=== PATIENT | male | born 2000 | race African-American/Black ===

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

== ENCOUNTER 2020-02-11 20:28 | Observation (INO) ==
[2020-02-11] MEDS: 0.9 % Sodium Chloride 1,000 ML IVC SCH ×2 (21:18→21:19)
[2020-02-11] MEDS ORDERED: *HR* Dextrose 50 % in Water (Syg) 50 ML SYRINGE IVP PRN (21:20)
[2020-02-11] MEDS ORDERED: Insulin Regular, Human 100 UNIT/ML IV ONE (21:20)
[2020-02-11 21:22] LABS: Basophils % 0.5 %; Eosinophils # 0.1 K/mcL (0.0-0.6); Eosinophils % 1.3 %; Hemoglobin 14.3 g/dL (12.9-16.9); Immature Granulocytes % 0.3 % (0-4); Lymphocytes # 3.1 K/mcL (0.6-4.6); Lymphocytes % 39.1 %; Mean Corpuscular HGB Conc 31.8 g/dL (31.6-35.5); Mean Corpuscular Volume 91.3 fL (83.0-100.0); Mean Platelet Volume 10.7 fL (9.4-12.4); Monocytes # 0.7 K/mcL (0.0-1.3); Neutrophils # 3.9 K/mcL (1.6-8.9); Platelet Count 302 K/mcL (140-400); Red Blood Count 4.93 M/mcL (4.19-5.50); Red Cell Distribution Width 12.6 % (11.5-14.5); Segmented Neutrophils % 49.8 %; White Blood Count 7.9 K/mcL (4.3-11.1)
[2020-02-11 21:25] LABS: Bilirubin,Urine Negative (Negative); Blood,Urine Negative (Negative); Clarity,Urine Clear (Clear); Color,Urine Yellow (Yellow); Glucose,Urine (UA) >=1000 mg/dL (Normal); Ketones,Urine Trace mg/dL (Negative); Leukocyte Esterase,Urine Negative (Negative); Nitrite,Urine Negative (Negative); Protein,Urine Negative (Neg-Trace); Specific Gravity,Urine 1.029 (1.010-1.025); Urobilinogen,Urine Normal (Normal)
[2020-02-11 21:28] LABS: VBG HCO3 31 mEq/L (21-27); VBG PCO2 59 mmHg (41-51); VBG PH 7.32 pH Units (7.32-7.42); VBG PO2 37 mmHg (25-50)
[2020-02-11] MEDS ORDERED: Insulin Human Regular 100 UNIT in 0.9 % Sodium Chloride 100 ML IVC SCH (21:30)
[2020-02-11 22:05] LABS: Amorphous Sediment,Urine Few per hpf (Few)
[2020-02-11 22:16] LABS: INR 0.9; Prothrombin Time 10.4 Seconds (9.4-12.1)
[2020-02-11 22:19] LABS: Activated Partial Thrombo Time 29.5 Seconds (26.0-36.0)
[2020-02-11 22:29] LABS: Alanine Aminotransferase 30 Units/L (7-52); Albumin 3.8 g/dL (3.5-5.7); Alkaline Phosphatase 103 Units/L (34-104); Aspartate Amino Transferase 35 Units/L (13-39); BUN/Creatinine Ratio 15 (6-26); Bilirubin,Total 0.6 mg/dL (0.3-1.0); Blood Urea Nitrogen 16 mg/dL (6-20); Calcium 8.1 mg/dL (8.6-10.3); Carbon Dioxide 25 mEq/L (23-29); Chloride 96 mEq/L (98-107); Globulin 1.9 g/dL (2.4-3.5); Glucose 740 mg/dL (70-105); Magnesium 1.8 mg/dL (1.6-2.6); Osmolality,Calculated 305 (280-300); Potassium 3.9 mEq/L (3.5-5.1); Sodium 129 mEq/L (136-145); Total Protein 5.7 g/dL (6.4-8.9); eGFR For African Americans > 60; eGFR For Non-African Americans > 60
[2020-02-12] MEDS ORDERED: 0.9 % Sodium Chloride 1,000 ML ONE (01:43)
[2020-02-12] MEDS ORDERED: Dextrose Gel 15 GM/37.5 ML TUBE PO PRN ×2 (02:53)
[2020-02-12] MEDS ORDERED: Insulin DETEMIR 100 UNIT/ML X5UNITS SQ SCH (02:53)
[2020-02-12] MEDS ORDERED: D5% in Water 1,000 ML IVC PRN (02:53)
[2020-02-12] MEDS ORDERED: *HR* Dextrose 50 % in Water (Syg) 50 ML SYRINGE IVP PRN (02:53)
[2020-02-12 05:39] LABS: Basophils % 0.5 %; Eosinophils # 0.2 K/mcL (0.0-0.6); Eosinophils % 1.9 %; Hematocrit 34.6 % (37.5-50.1); Immature Granulocytes % 0.1 % (0-4); Lymphocytes # 3.9 K/mcL (0.6-4.6); Lymphocytes % 44.4 %; Mean Corpuscular Hemoglobin 29.4 pg (28.0-33.3); Monocytes # 0.8 K/mcL (0.0-1.3); Monocytes % 8.5 %; Neutrophils # 3.9 K/mcL (1.6-8.9); Platelet Count 270 K/mcL (140-400); Red Blood Count 4.12 M/mcL (4.19-5.50); Red Cell Distribution Width 12.3 % (11.5-14.5); Segmented Neutrophils % 44.6 %; White Blood Count 8.8 K/mcL (4.3-11.1)
[2020-02-12 05:42] LABS: Hemoglobin 12.1 g/dL (12.9-16.9)
[2020-02-12 05:54] LABS: BUN/Creatinine Ratio 15 (6-26); Blood Urea Nitrogen 13 mg/dL (6-20); Calcium 8.9 mg/dL (8.6-10.3); Carbon Dioxide 26 mEq/L (23-29); Chloride 103 mEq/L (98-107); Glucose 202 mg/dL (70-105); Osmolality,Calculated 290 (280-300); Potassium 3.3 mEq/L (3.5-5.1); Sodium 137 mEq/L (136-145); eGFR For African Americans > 60; eGFR For Non-African Americans > 60
[2020-02-12] MEDS: Insulin LISPRO 300 UNITS/3 ML VIAL SQ SCH ×2 (07:41→12:20)
[2020-02-12] MEDS ORDERED: lisinopriL 5 MG TABLET PO SCH (09:00)
[2020-02-12 12:06] VITALS: BP 123/74
[2020-02-12] MEDS ORDERED: Insulin LISPRO 300 UNITS/3 ML VIAL SQ SCH (21:00)
== END 2020-02-12 14:37 | disposition home or self-care (01) ==
LOC: EMEROOARM 20:28 → 3NENU 20:28 → SUATTDRO 23:45 → 3NENU 02-12 00:22 → 3BNU 02-12 11:53
PROVIDERS: ADMIT Internal Medicine; ATTEND Internal Medicine

== ENCOUNTER 2022-02-07 12:17 | Inpatient (IN) ==
[~2022-02-07 12:17] MED LIST: Ringers Solution, Lactated 1,000 ML IVC ONE
[2022-02-07] MEDS ORDERED: CeFAZolin Syr 2,000MG/20 ML 2,000 MG/20 ML SYRINGE IVPB ONE (12:41)
[2022-02-07] MEDS ORDERED: Insulin Human Regular 3 UNIT in 0.9 % Sodium Chloride 10 ML IV ONE (12:49)
[2022-02-07] MEDS ORDERED: Ondansetron 4 MG/2 ML VIAL IVP PRN (13:00)
[2022-02-07] MEDS ORDERED: Naloxone 0.4 MG/ML INJ IVP PRN ×2 (13:00→17:34)
[2022-02-07] MEDS ORDERED: *HR* FentaNYL (PF) 100 MCG/2 ML VIAL IVP PRN (13:00)
[2022-02-07] MEDS ORDERED: Nitroglycerin 0.4 MG TAB.SUBL SL PRN (13:00)
[2022-02-07] MEDS ORDERED: Albuterol 2.5 MG/3 ML NEBULIZER IH PRN (13:00)
[2022-02-07] MEDS ORDERED: *HR* FentaNYL (PF) 100 MCG/2 ML VIAL ONE (13:12)
[2022-02-07] MEDS ORDERED: *HR* Midazolam HCl 2 MG/2 ML VIAL ONE (13:12)
[2022-02-07] MEDS ORDERED: Lidocaine -MPF 2% 2 ML VIAL ONE (13:12)
[2022-02-07] MEDS ORDERED: *HR* Propofol 200 MG/20 ML VIAL IVP ONE ×2 (13:12→16:07)
[2022-02-07] MEDS ORDERED: Acetaminophen IV 1,000 MG/100 ML BAG IVPB ONE (14:00)
[2022-02-07] MEDS ORDERED: Famotidine 20 MG/2 ML VIAL IVP ONE (14:00)
[2022-02-07] MEDS ORDERED: Ondansetron 4 MG/2 ML VIAL ONE (16:00)
[2022-02-07] MEDS ORDERED: D5% in Water 1,000 ML IVC PRN (17:34)
[2022-02-07] MEDS ORDERED: Dextrose 4 GM Chewable Tablets PO PRN ×2 (17:34)
[2022-02-07] MEDS ORDERED: *HR* Dextrose 50 % in Water (Syg) 50 ML SYRINGE IVP PRN (17:34)
[2022-02-07] MEDS: Ibuprofen 600 MG TABLET PO PRN (20:57)
[2022-02-07] MEDS: Insulin DETEMIR 100 UNIT/ML X5UNITS SUBQ SCH (21:00)
[2022-02-07] MEDS: Insulin LISPRO 300 UNITS/3 ML VIAL SUBQ SCH (21:00)
[2022-02-07] MEDS ORDERED: Insulin DETEMIR 100 UNIT/ML X5UNITS SUBQ SCH (21:00)
[2022-02-07] MEDS: Piperacillin/Tazobactam 3.375 GM in 0.9 % Sodium Chloride Mini Bag 100 ML IVPB SCH (21:39)
[2022-02-07 22:25] LABS: BUN/Creatinine Ratio 14 (6-26); Blood Urea Nitrogen 16 mg/dL (6-20)
[2022-02-07 22:26] LABS: eGFR For African Americans > 60 (> 60); eGFR For Non-African Americans > 60 (> 60)
[2022-02-08 01:04] LABS: Basophils % 0.3 %; Eosinophils # 0.1 K/mcL (0.0-0.6); Eosinophils % 1.6 %; Hematocrit 35.4 % (37.5-50.1); Hemoglobin 12.3 g/dL (12.9-16.9); Immature Granulocytes % 0.2 % (0-4); Lymphocytes # 3.1 K/mcL (0.6-4.6); Lymphocytes % 36.2 %; Mean Corpuscular HGB Conc 34.7 g/dL (31.6-35.5); Mean Corpuscular Hemoglobin 29.6 pg (28.0-33.3); Mean Corpuscular Volume 85.1 fL (83.0-100.0); Mean Platelet Volume 10.2 fL (9.4-12.4); Monocytes # 0.7 K/mcL (0.0-1.3); Monocytes % 7.7 %; Neutrophils # 4.7 K/mcL (1.6-8.9); Platelet Count 231 K/mcL (140-400); Red Blood Count 4.16 M/mcL (4.19-5.50); Red Cell Distribution Width 11.9 % (11.5-14.5); White Blood Count 8.7 K/mcL (4.3-11.1)
[2022-02-08 01:19] LABS: Blood Urea Nitrogen 16 mg/dL (6-20); Calcium 8.8 mg/dL (8.6-10.3); Carbon Dioxide 26 mEq/L (23-29); Chloride 104 mEq/L (98-107); Glucose 339 mg/dL (70-105); Osmolality,Calculated 299 (280-300); Potassium 3.6 mEq/L (3.5-5.1); Sodium 137 mEq/L (136-145)
[2022-02-08 01:55] LABS: BUN/Creatinine Ratio 13 (6-26); eGFR For African Americans > 60 (> 60); eGFR For Non-African Americans > 60 (> 60)
[2022-02-08] MEDS: Piperacillin/Tazobactam 3.375 GM in 0.9 % Sodium Chloride Mini Bag 100 ML IVPB SCH ×2 (04:49→13:55)
[2022-02-08] MEDS: Insulin LISPRO 300 UNITS/3 ML VIAL SUBQ SCH ×4 (09:01→21:34)
[2022-02-08 12:33] LABS: C-Reactive Protein 6 mg/L (Less than 10)
[2022-02-08] MEDS: Ibuprofen 600 MG TABLET PO PRN ×2 (13:55→21:39)
[2022-02-08] MEDS: Cefepime HCl 2,000 MG in 0.9 % Sodium Chloride Mini Bag 100 ML IVPB SCH (18:06)
[2022-02-08] MEDS: Insulin DETEMIR 100 UNIT/ML X5UNITS SUBQ SCH (21:34)
[2022-02-09 04:59] LABS: Basophils # 0.1 K/mcL (0.0-0.2); Basophils % 0.8 %; Eosinophils # 0.2 K/mcL (0.0-0.6); Eosinophils % 2.4 %; Hematocrit 35.5 % (37.5-50.1); Hemoglobin 12.6 g/dL (12.9-16.9); Immature Granulocytes % 0.2 % (0-4); Lymphocytes # 2.6 K/mcL (0.6-4.6); Lymphocytes % 38.9 %; Mean Corpuscular HGB Conc 35.5 g/dL (31.6-35.5); Mean Corpuscular Hemoglobin 29.9 pg (28.0-33.3); Mean Corpuscular Volume 84.3 fL (83.0-100.0); Mean Platelet Volume 10.1 fL (9.4-12.4); Monocytes # 0.7 K/mcL (0.0-1.3); Monocytes % 10.2 %; Neutrophils # 3.1 K/mcL (1.6-8.9); Platelet Count 235 K/mcL (140-400); Red Blood Count 4.21 M/mcL (4.19-5.50); Segmented Neutrophils % 47.5 %; White Blood Count 6.6 K/mcL (4.3-11.1)
[2022-02-09 05:10] LABS: BUN/Creatinine Ratio 13 (6-26); Blood Urea Nitrogen 12 mg/dL (6-20); Calcium 9.1 mg/dL (8.6-10.3); Carbon Dioxide 26 mEq/L (23-29); Chloride 109 mEq/L (98-107); Glucose 55 mg/dL (70-105); Osmolality,Calculated 291 (280-300); Potassium 3.4 mEq/L (3.5-5.1); Sodium 142 mEq/L (136-145); eGFR For African Americans > 60 (> 60); eGFR For Non-African Americans > 60 (> 60)
[2022-02-09] MEDS: Cefepime HCl 2,000 MG in 0.9 % Sodium Chloride Mini Bag 100 ML IVPB SCH ×2 (05:32→18:21)
[2022-02-09] MEDS ORDERED: MethylPREDNISolone 40 MG/ML VIAL IVP ONE (07:06)
[2022-02-09] MEDS ORDERED: Famotidine 20 MG/2 ML VIAL IVP ONE (07:06)
[2022-02-09] MEDS: Insulin LISPRO 300 UNITS/3 ML VIAL SUBQ SCH ×6 (08:26→22:04)
[2022-02-09] MEDS: Insulin DETEMIR 100 UNIT/ML X5UNITS SUBQ SCH ×2 (08:27→22:03)
[2022-02-09] MEDS ORDERED: Insulin DETEMIR 100 UNIT/ML X5UNITS SUBQ SCH (09:00)
[2022-02-09] MEDS: Vancomycin 1,250 MG/262.5 ML IV.SOLN IVPB SCH ×2 (12:15→22:07)
[2022-02-09] MEDS: Ibuprofen 600 MG TABLET PO PRN (18:20)
[2022-02-10] MEDS: Cefepime HCl 2,000 MG in 0.9 % Sodium Chloride Mini Bag 100 ML IVPB SCH (05:19)
[2022-02-10 05:49] LABS: Basophils # 0.1 K/mcL (0.0-0.2); Basophils % 0.5 %; Eosinophils # 0.1 K/mcL (0.0-0.6); Eosinophils % 1.1 %; Hematocrit 35.1 % (37.5-50.1); Hemoglobin 12.1 g/dL (12.9-16.9); Immature Granulocytes % 0.4 % (0-4); Lymphocytes % 28.6 %; Mean Corpuscular HGB Conc 34.5 g/dL (31.6-35.5); Mean Corpuscular Hemoglobin 29.4 pg (28.0-33.3); Mean Corpuscular Volume 85.2 fL (83.0-100.0); Mean Platelet Volume 9.8 fL (9.4-12.4); Monocytes # 0.9 K/mcL (0.0-1.3); Monocytes % 8.3 %; Neutrophils # 6.4 K/mcL (1.6-8.9); Platelet Count 235 K/mcL (140-400); Red Blood Count 4.12 M/mcL (4.19-5.50); Red Cell Distribution Width 11.9 % (11.5-14.5); Segmented Neutrophils % 61.1 %
[2022-02-10 06:07] LABS: White Blood Count 10.4 K/mcL (4.3-11.1)
[2022-02-10 06:12] LABS: BUN/Creatinine Ratio 18 (6-26); Blood Urea Nitrogen 17 mg/dL (6-20); Calcium 9.3 mg/dL (8.6-10.3); Carbon Dioxide 27 mEq/L (23-29); Chloride 108 mEq/L (98-107); Glucose 102 mg/dL (70-105); Osmolality,Calculated 294 (280-300); Potassium 3.5 mEq/L (3.5-5.1); Sodium 141 mEq/L (136-145); eGFR For African Americans > 60 (> 60); eGFR For Non-African Americans > 60 (> 60)
[2022-02-10] MEDS: Insulin LISPRO 300 UNITS/3 ML VIAL SUBQ SCH ×7 (08:00→22:37)
[2022-02-10] MEDS: Insulin DETEMIR 100 UNIT/ML X5UNITS SUBQ SCH ×2 (08:39→22:36)
[2022-02-10] MEDS: Vancomycin 1,250 MG/262.5 ML IV.SOLN IVPB SCH (11:15)
[2022-02-10] MEDS: Lactobacillus 1 EACH CAP.SPRINK PO SCH (20:01)
[2022-02-10] MEDS: Ibuprofen 600 MG TABLET PO PRN (20:03)
[2022-02-11 04:46] LABS: Basophils % 0.5 %; Eosinophils # 0.2 K/mcL (0.0-0.6); Eosinophils % 2.1 %; Hematocrit 33.3 % (37.5-50.1); Hemoglobin 11.5 g/dL (12.9-16.9); Immature Granulocytes % 0.3 % (0-4); Lymphocytes # 2.5 K/mcL (0.6-4.6); Lymphocytes % 32.2 %; Mean Corpuscular HGB Conc 34.5 g/dL (31.6-35.5); Mean Corpuscular Hemoglobin 29.2 pg (28.0-33.3); Mean Corpuscular Volume 84.5 fL (83.0-100.0); Mean Platelet Volume 10.2 fL (9.4-12.4); Monocytes # 0.8 K/mcL (0.0-1.3); Monocytes % 9.7 %; Neutrophils # 4.3 K/mcL (1.6-8.9); Platelet Count 233 K/mcL (140-400); Red Blood Count 3.94 M/mcL (4.19-5.50); Segmented Neutrophils % 55.2 %; White Blood Count 7.8 K/mcL (4.3-11.1)
[2022-02-11 05:05] LABS: BUN/Creatinine Ratio 18 (6-26); Blood Urea Nitrogen 17 mg/dL (6-20); Calcium 9.1 mg/dL (8.6-10.3); Carbon Dioxide 27 mEq/L (23-29); Chloride 105 mEq/L (98-107); Glucose 290 mg/dL (70-105); Osmolality,Calculated 298 (280-300); Potassium 3.7 mEq/L (3.5-5.1); Sodium 138 mEq/L (136-145); eGFR For African Americans > 60 (> 60); eGFR For Non-African Americans > 60 (> 60)
[2022-02-11] MEDS: Lactobacillus 1 EACH CAP.SPRINK PO SCH ×2 (07:41→19:59)
[2022-02-11] MEDS: Insulin LISPRO 300 UNITS/3 ML VIAL SUBQ SCH ×7 (07:42→21:20)
[2022-02-11] MEDS ORDERED: Lidocaine -MPF 1% 5 ML AMPUL INFILT ONE (15:10)
[2022-02-11] MEDS: Insulin DETEMIR 100 UNIT/ML X5UNITS SUBQ SCH ×2 (15:17→21:20)
[2022-02-11] MEDS: Ibuprofen 600 MG TABLET PO PRN (23:47)
[2022-02-12] MEDS: Insulin LISPRO 300 UNITS/3 ML VIAL SUBQ SCH ×7 (08:33→20:40)
[2022-02-12] MEDS: Lactobacillus 1 EACH CAP.SPRINK PO SCH ×2 (08:34→20:40)
[2022-02-12] MEDS: Insulin DETEMIR 100 UNIT/ML X5UNITS SUBQ SCH ×2 (08:35→20:41)
[2022-02-12] MEDS: Ibuprofen 600 MG TABLET PO PRN (23:02)
[2022-02-13] MEDS: Insulin LISPRO 300 UNITS/3 ML VIAL SUBQ SCH ×2 (07:49→07:50)
[2022-02-13] MEDS: Lactobacillus 1 EACH CAP.SPRINK PO SCH (07:51)
[2022-02-13 11:07] VITALS: BP 141/92; PULSE 87; TEMP 97.8; O2SAT 100
[2022-02-13 11:08] LABS: Basophils # 0.1 K/mcL (0.0-0.2); Basophils % 0.7 %; Eosinophils # 0.2 K/mcL (0.0-0.6); Eosinophils % 2.4 %; Hematocrit 35.1 % (37.5-50.1); Hemoglobin 12.3 g/dL (12.9-16.9); Immature Granulocytes % 0.3 % (0-4); Lymphocytes # 1.7 K/mcL (0.6-4.6); Lymphocytes % 24.7 %; Mean Corpuscular Hemoglobin 29.6 pg (28.0-33.3); Mean Corpuscular Volume 84.6 fL (83.0-100.0); Monocytes # 0.7 K/mcL (0.0-1.3); Monocytes % 10.5 %; Neutrophils # 4.3 K/mcL (1.6-8.9); Platelet Count 263 K/mcL (140-400); Red Blood Count 4.15 M/mcL (4.19-5.50); Red Cell Distribution Width 11.9 % (11.5-14.5); Segmented Neutrophils % 61.4 %
[2022-02-13 11:31] LABS: BUN/Creatinine Ratio 16 (6-26); Blood Urea Nitrogen 14 mg/dL (6-20); Calcium 9.3 mg/dL (8.6-10.3); Carbon Dioxide 29 mEq/L (23-29); Chloride 106 mEq/L (98-107); Glucose 168 mg/dL (70-105); Magnesium 1.5 mg/dL (1.6-2.6); Osmolality,Calculated 296 (280-300); Potassium 3.8 mEq/L (3.5-5.1); Sodium 141 mEq/L (136-145); eGFR For African Americans > 60 (> 60); eGFR For Non-African Americans > 60 (> 60)
== END 2022-02-13 12:22 | disposition home health service (06) | DRG 506 ==
LOC: SDCAOSI 12:17 → 4WAOSI 12:17 → SUATTDRO 17:34
PROVIDERS: ADMIT Internal Medicine; ATTEND Pharmacist

== ENCOUNTER 2022-02-20 20:19 | Inpatient (IN) ==
[2022-02-20] MEDS ORDERED: Cefepime HCl 2,000 MG in 0.9 % Sodium Chloride 10 ML IVP ONE (20:45)
[2022-02-20] MEDS: 0.9 % Sodium Chloride 1,000 ML IVC SCH ×2 (20:58→22:47)
[2022-02-20 21:01] LABS: Basophils % 0.3 %; Eosinophils # 0.2 K/mcL (0.0-0.6); Eosinophils % 2.1 %; Hematocrit 38.6 % (37.5-50.1); Hemoglobin 13.7 g/dL (12.9-16.9); Immature Granulocytes % 0.3 % (0-4); Lymphocytes # 0.7 K/mcL (0.6-4.6); Lymphocytes % 9.1 %; Mean Corpuscular HGB Conc 35.5 g/dL (31.6-35.5); Mean Corpuscular Hemoglobin 29.8 pg (28.0-33.3); Mean Corpuscular Volume 83.9 fL (83.0-100.0); Monocytes # 0.8 K/mcL (0.0-1.3); Monocytes % 10.2 %; Neutrophils # 5.9 K/mcL (1.6-8.9); Platelet Count 225 K/mcL (140-400); Red Cell Distribution Width 11.9 % (11.5-14.5); White Blood Count 7.6 K/mcL (4.3-11.1)
[2022-02-20 21:07] LABS: VBG HCO3 27 mEq/L (21-27); VBG PCO2 46 mmHg (41-51); VBG PH 7.37 pH Units (7.32-7.42); VBG PO2 47 mmHg (25-50)
[2022-02-20 21:12] LABS: Prothrombin Time 11.6 Seconds (9.4-12.1)
[2022-02-20 21:14] LABS: Activated Partial Thrombo Time 32.6 Seconds (26.0-36.0)
[2022-02-20 21:24] LABS: Alanine Aminotransferase 25 Units/L (7-52); Albumin 4.3 g/dL (3.5-5.7); Albumin/Globulin Ratio 1.5 (1.1-2.2); Alkaline Phosphatase 70 Units/L (34-104); Aspartate Amino Transferase 23 Units/L (13-39); BUN/Creatinine Ratio 16 (6-26); Bilirubin,Indirect 0.5 mg/dL (0.0-1.0); Bilirubin,Total 0.5 mg/dL (0.3-1.0); Blood Urea Nitrogen 20 mg/dL (6-20); Calcium 9.3 mg/dL (8.6-10.3); Carbon Dioxide 27 mEq/L (23-29); Chloride 102 mEq/L (98-107); Globulin 2.8 g/dL (2.4-3.5); Glucose 200 mg/dL (70-105); Magnesium 1.6 mg/dL (1.6-2.6); Osmolality,Calculated 294 (280-300); Phosphorous 3.6 mg/dL (2.7-4.5); Potassium 3.5 mEq/L (3.5-5.1); Sodium 138 mEq/L (136-145); Total Protein 7.1 g/dL (6.4-8.9); eGFR For African Americans > 60 (> 60); eGFR For Non-African Americans > 60 (> 60)
[2022-02-20 21:25] LABS: Troponin I < 0.03 ng/mL (< 0.04)
[2022-02-20 22:25] LABS: Influenza A PCR Negative (Negative); Influenza B PCR Negative (Negative); Resp. Syncytial Virus PCR Negative (Negative)
[2022-02-20 22:30] LABS: SARS-CoV-2 by PCR (In House) Negative (Negative)
[2022-02-20] MEDS ORDERED: Ibuprofen 600 MG TABLET PO ONE (22:35)
[2022-02-20 22:53] LABS: C-Reactive Protein 18 mg/L (Less than 10)
[2022-02-20 23:08] LABS: Appearance,CSF Clear (Clear); Red Blood Cell,CSF < 2000 RBC/mcL
[2022-02-20 23:16] LABS: Bacteria,Urine Few per hpf (None-Few); Bilirubin,Urine Negative (Negative); Blood,Urine Small (Negative); Clarity,Urine Clear (Clear); Color,Urine Light-Yellow (Yellow); Glucose,Urine (UA) 70 mg/dL (Normal); Ketones,Urine 10 mg/dL (Negative); Leukocyte Esterase,Urine Negative (Negative); Mucus,Urine Few per lpf (None-Few); Nitrite,Urine Negative (Negative); Protein,Urine 200 mg/dL (Neg-Trace); Specific Gravity,Urine 1.022 (1.010-1.025); Sperm,Urine Present per hpf (None Seen); Squamous Epithelial Cell,Urine Few per hpf (None-Few); Urobilinogen,Urine Normal (Normal); WBC,Urine 0-3 per hpf (0-3)
[2022-02-20 23:29] LABS: Glucose,CSF 101 mg/dL (40-70); Total Protein,CSF 99 mg/dL (15-45)
[2022-02-21] MEDS ORDERED: Ondansetron 4 MG/2 ML VIAL IVP PRN (01:04)
[2022-02-21] MEDS ORDERED: Naloxone 0.4 MG/ML INJ IVP PRN (01:04)
[2022-02-21] MEDS ORDERED: Dextrose 4 GM Chewable Tablets PO PRN ×2 (01:05)
[2022-02-21] MEDS ORDERED: D5% in Water 1,000 ML IVC PRN (01:05)
[2022-02-21] MEDS ORDERED: *HR* Dextrose 50 % in Water (Syg) 50 ML SYRINGE IVP PRN (01:05)
[2022-02-21 02:53] LABS: Basophils % 0.2 %; Eosinophils # 0.1 K/mcL (0.0-0.6); Eosinophils % 2.2 %; Hematocrit 33.2 % (37.5-50.1); Immature Granulocytes % 0.3 % (0-4); Lymphocytes # 0.6 K/mcL (0.6-4.6); Lymphocytes % 9.6 %; Mean Corpuscular HGB Conc 34.9 g/dL (31.6-35.5); Mean Corpuscular Hemoglobin 29.7 pg (28.0-33.3); Mean Corpuscular Volume 84.9 fL (83.0-100.0); Mean Platelet Volume 10.5 fL (9.4-12.4); Monocytes # 0.6 K/mcL (0.0-1.3); Monocytes % 10.4 %; Neutrophils # 4.5 K/mcL (1.6-8.9); Platelet Count 187 K/mcL (140-400); Red Blood Count 3.91 M/mcL (4.19-5.50); Segmented Neutrophils % 77.3 %; White Blood Count 5.8 K/mcL (4.3-11.1)
[2022-02-21 02:54] LABS: Hemoglobin 11.6 g/dL (12.9-16.9)
[2022-02-21 03:02] LABS: INR 1.1; Prothrombin Time 12.2 Seconds (9.4-12.1)
[2022-02-21 03:05] LABS: Activated Partial Thrombo Time 30.5 Seconds (26.0-36.0)
[2022-02-21] MEDS: Ringers Solution, Lactated 1,000 ML IVC SCH ×2 (03:07→19:59)
[2022-02-21] MEDS: Insulin DETEMIR 100 UNIT/ML X5UNITS SUBQ SCH ×2 (03:13→22:13)
[2022-02-21 03:16] LABS: Alanine Aminotransferase 22 Units/L (7-52); Albumin 3.6 g/dL (3.5-5.7); Albumin/Globulin Ratio 1.9 (1.1-2.2); Alkaline Phosphatase 55 Units/L (34-104); Aspartate Amino Transferase 23 Units/L (13-39); BUN/Creatinine Ratio 16 (6-26); Bilirubin,Total 0.5 mg/dL (0.3-1.0); Blood Urea Nitrogen 18 mg/dL (6-20); Calcium 8.2 mg/dL (8.6-10.3); Carbon Dioxide 21 mEq/L (23-29); Chloride 105 mEq/L (98-107); Globulin 1.9 g/dL (2.4-3.5); Glucose 243 mg/dL (70-105); Magnesium 1.4 mg/dL (1.6-2.6); Osmolality,Calculated 290 (280-300); Potassium 3.4 mEq/L (3.5-5.1); Sodium 135 mEq/L (136-145); Total Protein 5.5 g/dL (6.4-8.9); eGFR For African Americans > 60 (> 60); eGFR For Non-African Americans > 60 (> 60)
[2022-02-21] MEDS ORDERED: Vancomycin 1,500 MG/265 ML IV.SOLN IVPB SCH (05:00)
[2022-02-21] MEDS ORDERED: Insulin LISPRO 300 UNITS/3 ML VIAL SUBQ SCH ×2 (06:00→07:30)
[2022-02-21] MEDS: Lactobacillus 1 EACH CAP.SPRINK PO SCH ×2 (08:23→22:13)
[2022-02-21] MEDS: Nicotine 21 MG PATCH.TD24 TD SCH (08:40)
[2022-02-21 09:19] LABS: Estimated Average Glucose 280 mg/dl; Hemoglobin A1C 11.4 %
[2022-02-21 10:38] LABS: Adenovirus Not Detected (Not Detect)
[2022-02-21 10:39] LABS: Bordetella Pertussis Not Detected (Not Detect); Chlamydophila pneumoniae Not Detected (Not Detect); Coronavirus 229E Not Detected (Not Detect); Coronavirus HKU1 Not Detected (Not Detect); Coronavirus NL63 Not Detected (Not Detect); Coronavirus OC43 Not Detected (Not Detect); Human Metapneumovirus Not Detected (Not Detect); Human Rhinovirus/Enterovirus Not Detected (Not Detect); Influenza A Subtype 2009 H1 Not Detected (Not Detect); Influenza B Not Detected (Not Detect); Mycoplasma pneumoniae Not Detected (Not Detect); Parainfluenza Virus 1 Not Detected (Not Detect); Parainfluenza Virus 2 Not Detected (Not Detect); Parainfluenza Virus 3 Not Detected (Not Detect); Parainfluenza Virus 4 Not Detected (Not Detect); Respiratory Syncytial Virus Not Detected (Not Detect); SARS-CoV-2 Not Detected (Not Detect)
[2022-02-21] MEDS: Insulin LISPRO 300 UNITS/3 ML VIAL SUBQ SCH ×2 (12:34→16:44)
[2022-02-21] MEDS ORDERED: Ibuprofen 600 MG TABLET PO ONE (18:09)
[2022-02-21] MEDS: Acetaminophen 325 MG TABLET PO PRN (18:16)
[2022-02-21] MEDS: Piperacillin/Tazobactam 3.375 GM in 0.9 % Sodium Chloride Mini Bag 100 ML IVPB SCH (20:01)
[2022-02-21] MEDS: Melatonin 3 MG TABLET PO PRN (22:16)
[2022-02-22] MEDS: Piperacillin/Tazobactam 3.375 GM in 0.9 % Sodium Chloride Mini Bag 100 ML IVPB SCH ×3 (04:22→18:00)
[2022-02-22 06:34] LABS: Hematocrit 30.9 % (37.5-50.1); Hemoglobin 10.7 g/dL (12.9-16.9); Mean Corpuscular HGB Conc 34.6 g/dL (31.6-35.5); Mean Corpuscular Hemoglobin 29.4 pg (28.0-33.3); Mean Corpuscular Volume 84.9 fL (83.0-100.0); Mean Platelet Volume 10.5 fL (9.4-12.4); Platelet Count 151 K/mcL (140-400); Red Blood Count 3.64 M/mcL (4.19-5.50); Red Cell Distribution Width 12.1 % (11.5-14.5); White Blood Count 4.9 K/mcL (4.3-11.1)
[2022-02-22 06:57] LABS: BUN/Creatinine Ratio 14 (6-26); Blood Urea Nitrogen 14 mg/dL (6-20); Calcium 8.4 mg/dL (8.6-10.3); Carbon Dioxide 24 mEq/L (23-29); Chloride 106 mEq/L (98-107); Glucose 274 mg/dL (70-105); Magnesium 1.7 mg/dL (1.6-2.6); Osmolality,Calculated 294 (280-300); Potassium 3.6 mEq/L (3.5-5.1); Sodium 137 mEq/L (136-145); eGFR For African Americans > 60 (> 60); eGFR For Non-African Americans > 60 (> 60)
[2022-02-22] MEDS: 0.9 % Sodium Chloride 1,000 ML IVC SCH ×4 (07:13→23:47)
[2022-02-22] MEDS: Nicotine 21 MG PATCH.TD24 TD SCH (08:10)
[2022-02-22] MEDS: Lactobacillus 1 EACH CAP.SPRINK PO SCH ×2 (08:14→19:56)
[2022-02-22] MEDS: Insulin LISPRO 300 UNITS/3 ML VIAL SUBQ SCH ×3 (08:15→17:47)
[2022-02-22] MEDS: Insulin DETEMIR 100 UNIT/ML X5UNITS SUBQ SCH (08:15)
[2022-02-22] MEDS ORDERED: Insulin DETEMIR 100 UNIT/ML X5UNITS SUBQ SCH ×2 (08:45→21:00)
[2022-02-22] MEDS ORDERED: Isovue-370 500 ML BOTTLE IVP ONE (09:07)
[2022-02-22 09:37] LABS: Thyroid Stimulating Hormone 2.405 mcIU/mL (0.340-5.600)
[2022-02-22] MEDS ORDERED: Insulin LISPRO 300 UNITS/3 ML VIAL SUBQ SCH (12:00)
[2022-02-22] MEDS: *HR* Heparin 5,000 UNIT/ML VIAL SQ SCH ×2 (12:51→21:30)
[2022-02-22] MEDS: Acetaminophen 325 MG TABLET PO PRN ×2 (12:51→19:56)
[2022-02-22 14:03] LABS: Protein/Creatinine Ratio,Urine 1.8 mg/mg (0.00-0.20)
[2022-02-22] MEDS: *HR* HYDROcodone/Acet 5/325 mg TABLET PO PRN (19:56)
[2022-02-23] MEDS: Piperacillin/Tazobactam 3.375 GM in 0.9 % Sodium Chloride Mini Bag 100 ML IVPB SCH ×3 (02:41→18:57)
[2022-02-23] MEDS: *HR* HYDROcodone/Acet 5/325 mg TABLET PO PRN (02:45)
[2022-02-23] MEDS: Acetaminophen 325 MG TABLET PO PRN ×2 (02:46→16:14)
[2022-02-23] MEDS ORDERED: Ibuprofen 600 MG TABLET PO ONE (04:29)
[2022-02-23] MEDS: *HR* Heparin 5,000 UNIT/ML VIAL SQ SCH ×3 (05:15→22:58)
[2022-02-23] MEDS: Insulin LISPRO 300 UNITS/3 ML VIAL SUBQ SCH ×3 (07:53→16:23)
[2022-02-23 08:09] LABS: Basophils % 0.2 %; Eosinophils # 0.2 K/mcL (0.0-0.6); Eosinophils % 2.7 %; Hematocrit 29.7 % (37.5-50.1); Hemoglobin 10.6 g/dL (12.9-16.9); Immature Granulocytes % 0.2 % (0-4); Lymphocytes # 1.1 K/mcL (0.6-4.6); Lymphocytes % 17.1 %; Mean Corpuscular HGB Conc 35.7 g/dL (31.6-35.5); Mean Corpuscular Hemoglobin 29.9 pg (28.0-33.3); Mean Corpuscular Volume 83.7 fL (83.0-100.0); Mean Platelet Volume 10.4 fL (9.4-12.4); Monocytes # 0.6 K/mcL (0.0-1.3); Monocytes % 8.4 %; Neutrophils # 4.8 K/mcL (1.6-8.9); Platelet Count 161 K/mcL (140-400); Red Blood Count 3.55 M/mcL (4.19-5.50); Segmented Neutrophils % 71.4 %; White Blood Count 6.7 K/mcL (4.3-11.1)
[2022-02-23] MEDS: Nicotine 21 MG PATCH.TD24 TD SCH (08:18)
[2022-02-23 08:29] LABS: Alanine Aminotransferase 102 Units/L (7-52); Albumin 3.2 g/dL (3.5-5.7); Albumin/Globulin Ratio 1.5 (1.1-2.2); Alkaline Phosphatase 60 Units/L (34-104); Aspartate Amino Transferase 95 Units/L (13-39); BUN/Creatinine Ratio 10 (6-26); Bilirubin,Total 0.4 mg/dL (0.3-1.0); Blood Urea Nitrogen 12 mg/dL (6-20); Calcium 8.2 mg/dL (8.6-10.3); Carbon Dioxide 25 mEq/L (23-29); Chloride 108 mEq/L (98-107); Globulin 2.1 g/dL (2.4-3.5); Glucose 53 mg/dL (70-105); Magnesium 1.6 mg/dL (1.6-2.6); Osmolality,Calculated 283 (280-300); Potassium 3.5 mEq/L (3.5-5.1); Sodium 138 mEq/L (136-145); Total Protein 5.3 g/dL (6.4-8.9); Vancomycin,Trough 13 mcg/mL (5-10); eGFR For African Americans > 60 (> 60); eGFR For Non-African Americans > 60 (> 60)
[2022-02-23] MEDS: Lactobacillus 1 EACH CAP.SPRINK PO SCH ×2 (08:54→21:07)
[2022-02-23] MEDS ORDERED: Insulin DETEMIR 100 UNIT/ML X5UNITS SUBQ SCH (09:00)
[2022-02-23] MEDS: 0.9 % Sodium Chloride 1,000 ML IVC SCH (11:16)
[2022-02-23 14:09] LABS: Hepatitis B Surface Antigen Nonreactive (Nonreactive)
[2022-02-23 14:38] LABS: Hepatitis B Core IgM Nonreactive (Nonreactive)
[2022-02-23 14:39] LABS: Hepatitis C Virus Antibody Nonreactive (Nonreactive)
[2022-02-23 14:40] LABS: Hepatitis A Antibody IgM Nonreactive (Nonreactive)
[2022-02-23 17:22] LABS: Lipase 7 Units/L (11-82)
[2022-02-23] MEDS ORDERED: Acetaminophen IV 1,000 MG/100 ML BAG IVPB ONE (20:07)
[2022-02-23] MEDS: Insulin DETEMIR 100 UNIT/ML X5UNITS SUBQ SCH (21:11)
[2022-02-24] MEDS: 0.9 % Sodium Chloride 1,000 ML IVC SCH ×3 (02:24→15:35)
[2022-02-24] MEDS: Piperacillin/Tazobactam 3.375 GM in 0.9 % Sodium Chloride Mini Bag 100 ML IVPB SCH ×3 (03:42→18:06)
[2022-02-24] MEDS: *HR* Heparin 5,000 UNIT/ML VIAL SQ SCH ×3 (05:06→21:46)
[2022-02-24 06:20] LABS: Basophils % 0.1 %; Eosinophils # 0.3 K/mcL (0.0-0.6); Eosinophils % 2.9 %; Hematocrit 31.3 % (37.5-50.1); Immature Granulocytes % 0.5 % (0-4); Lymphocytes % 10.7 %; Mean Corpuscular HGB Conc 35.1 g/dL (31.6-35.5); Mean Corpuscular Hemoglobin 29.6 pg (28.0-33.3); Mean Corpuscular Volume 84.1 fL (83.0-100.0); Mean Platelet Volume 10.2 fL (9.4-12.4); Monocytes # 0.9 K/mcL (0.0-1.3); Monocytes % 9.7 %; Neutrophils # 7.1 K/mcL (1.6-8.9); Platelet Count 195 K/mcL (140-400); Red Blood Count 3.72 M/mcL (4.19-5.50); Red Cell Distribution Width 12.2 % (11.5-14.5); Segmented Neutrophils % 76.1 %; White Blood Count 9.3 K/mcL (4.3-11.1)
[2022-02-24 06:35] LABS: Alanine Aminotransferase 110 Units/L (7-52); Albumin 3.3 g/dL (3.5-5.7); Albumin/Globulin Ratio 1.4 (1.1-2.2); Alkaline Phosphatase 67 Units/L (34-104); Aspartate Amino Transferase 80 Units/L (13-39); BUN/Creatinine Ratio 10 (6-26); Bilirubin,Direct 0.1 mg/dL (0.0-0.2); Bilirubin,Indirect 0.5 mg/dL (0.0-1.0); Bilirubin,Total 0.6 mg/dL (0.3-1.0); Blood Urea Nitrogen 12 mg/dL (6-20); Calcium 8.1 mg/dL (8.6-10.3); Carbon Dioxide 20 mEq/L (23-29); Chloride 105 mEq/L (98-107); Globulin 2.4 g/dL (2.4-3.5); Glucose 252 mg/dL (70-105); Osmolality,Calculated 286 (280-300); Potassium 3.3 mEq/L (3.5-5.1); Sodium 134 mEq/L (136-145); Total Protein 5.7 g/dL (6.4-8.9); eGFR For African Americans > 60 (> 60); eGFR For Non-African Americans > 60 (> 60)
[2022-02-24] MEDS: Lactobacillus 1 EACH CAP.SPRINK PO SCH ×2 (07:45→21:46)
[2022-02-24] MEDS: Insulin DETEMIR 100 UNIT/ML X5UNITS SUBQ SCH ×2 (08:02→21:46)
[2022-02-24] MEDS: Insulin LISPRO 300 UNITS/3 ML VIAL SUBQ SCH ×3 (08:03→16:08)
[2022-02-24] MEDS: Acetaminophen 325 MG TABLET PO PRN ×2 (08:11→14:34)
[2022-02-24] MEDS: Nicotine 21 MG PATCH.TD24 TD SCH (08:14)
[2022-02-24] MEDS ORDERED: MethylPREDNISolone 40 MG/ML VIAL IVP ONE (13:14)
[2022-02-24] MEDS ORDERED: Ipratropium/Albuterol Neb 3 ML IH PRN (13:14)
[2022-02-24 15:44] LABS: Adenovirus F 40/41 PCR Not detected (Not detect); Astrovirus PCR Not detected (Not detect); C.difficile Toxin A/B Gene PCR Not detected (Not detect); Campylobacter by PCR Not detected (Not detect); Cryptosporidium by PCR Not detected (Not detect); Cyclospora cayetanensis PCR Not detected (Not detect); Entamoeba histolytica PCR Not detected (Not detect); Enteroaggregative E.coli(EAEC) Not detected (Not detect); Enteropathogenic E.coli(EPEC) Not detected (Not detect); Enterotoxigenic E.coli (ETEC) Not detected (Not detect); Giardia lamblia PCR Not detected (Not detect); Norovirus GI/GII PCR Not detected (Not detect); Plesiomonas shigelloides PCR Not detected (Not detect); Rotavirus A PCR Not detected (Not detect); Salmonella PCR Not detected (Not detect); Sapovirus PCR Not detected (Not detect); Shig/EnteroinvasiveE coli EIEC Not detected (Not detect); Shigalike tox-prod E coli STEC Not detected (Not detect); Vibrio PCR Not detected (Not detect); Vibrio cholerae PCR Not detected (Not detect); Yersinia enterocolitica PCR Not detected (Not detect)
[2022-02-25] MEDS: Piperacillin/Tazobactam 3.375 GM in 0.9 % Sodium Chloride Mini Bag 100 ML IVPB SCH ×3 (03:00→18:19)
[2022-02-25] MEDS: 0.9 % Sodium Chloride 1,000 ML IVC SCH ×2 (04:44→23:45)
[2022-02-25] MEDS: *HR* Heparin 5,000 UNIT/ML VIAL SQ SCH ×3 (05:16→20:53)
[2022-02-25 07:24] LABS: Basophils % 0.2 %; Eosinophils # 0.2 K/mcL (0.0-0.6); Eosinophils % 2.4 %; Hematocrit 30.4 % (37.5-50.1); Hemoglobin 10.5 g/dL (12.9-16.9); Immature Granulocytes % 0.2 % (0-4); Lymphocytes # 1.4 K/mcL (0.6-4.6); Lymphocytes % 14.7 %; Mean Corpuscular HGB Conc 34.5 g/dL (31.6-35.5); Mean Corpuscular Hemoglobin 28.8 pg (28.0-33.3); Mean Corpuscular Volume 83.5 fL (83.0-100.0); Mean Platelet Volume 10.2 fL (9.4-12.4); Monocytes # 1.1 K/mcL (0.0-1.3); Monocytes % 11.1 %; Neutrophils # 6.8 K/mcL (1.6-8.9); Platelet Count 233 K/mcL (140-400); Red Blood Count 3.64 M/mcL (4.19-5.50); Red Cell Distribution Width 12.2 % (11.5-14.5); Segmented Neutrophils % 71.4 %; White Blood Count 9.5 K/mcL (4.3-11.1)
[2022-02-25 07:35] LABS: Alanine Aminotransferase 98 Units/L (7-52); Albumin 3.1 g/dL (3.5-5.7); Albumin/Globulin Ratio 1.3 (1.1-2.2); Alkaline Phosphatase 63 Units/L (34-104); Aspartate Amino Transferase 54 Units/L (13-39); BUN/Creatinine Ratio 13 (6-26); Bilirubin,Indirect 0.4 mg/dL (0.0-1.0); Bilirubin,Total 0.4 mg/dL (0.3-1.0); Blood Urea Nitrogen 16 mg/dL (6-20); Calcium 8.2 mg/dL (8.6-10.3); Carbon Dioxide 22 mEq/L (23-29); Chloride 108 mEq/L (98-107); Chol/HDL Ratio 3.6 (0-4.9); Cholesterol 103 mg/dL (< 200); Globulin 2.4 g/dL (2.4-3.5); Glucose 206 mg/dL (70-105); HDL Cholesterol 29 mg/dL (40-59); LDL Cholesterol,Calculated 53 mg/dL (< 100); Osmolality,Calculated 291 (280-300); Potassium 3.7 mEq/L (3.5-5.1); Sodium 137 mEq/L (136-145); Total Protein 5.5 g/dL (6.4-8.9); Triglycerides 103 mg/dL (< 150); eGFR For African Americans > 60 (> 60); eGFR For Non-African Americans > 60 (> 60)
[2022-02-25] MEDS: Insulin LISPRO 300 UNITS/3 ML VIAL SUBQ SCH ×4 (09:24→21:08)
[2022-02-25] MEDS: Lactobacillus 1 EACH CAP.SPRINK PO SCH ×2 (09:24→20:53)
[2022-02-25] MEDS: Nicotine 21 MG PATCH.TD24 TD SCH (09:26)
[2022-02-25] MEDS: Insulin DETEMIR 100 UNIT/ML X5UNITS SUBQ SCH ×2 (09:26→20:53)
[2022-02-25] MEDS ORDERED: Furosemide 20 MG/2 ML VIAL IVP ONE (09:48)
[2022-02-25 11:04] LABS: Complement C3 152 mg/dL (87-200)
[2022-02-25 11:12] LABS: Adenovirus Not Detected (Not Detect); Coronavirus 229E Not Detected (Not Detect); Coronavirus HKU1 Not Detected (Not Detect); Coronavirus NL63 Not Detected (Not Detect); Coronavirus OC43 Not Detected (Not Detect); Human Metapneumovirus Not Detected (Not Detect); Human Rhinovirus/Enterovirus Not Detected (Not Detect); Influenza A Subtype 2009 H1 Not Detected (Not Detect); SARS-CoV-2 Not Detected (Not Detect)
[2022-02-25 11:13] LABS: Bordetella Pertussis Not Detected (Not Detect); Chlamydophila pneumoniae Not Detected (Not Detect); Influenza B Not Detected (Not Detect); Mycoplasma pneumoniae Not Detected (Not Detect); Parainfluenza Virus 1 Not Detected (Not Detect); Parainfluenza Virus 2 Not Detected (Not Detect); Parainfluenza Virus 3 Not Detected (Not Detect); Parainfluenza Virus 4 Not Detected (Not Detect); Respiratory Syncytial Virus Not Detected (Not Detect)
[2022-02-25] MEDS ORDERED: Vancomycin 1,250 MG/262.5 ML IV.SOLN IVPB SCH (12:00)
[2022-02-25] MEDS: Acetaminophen 325 MG TABLET PO PRN ×2 (12:07→18:19)
[2022-02-25] MEDS ORDERED: Isovue-370 500 ML BOTTLE IVP ONE (13:48)
[2022-02-25] MEDS ORDERED: Perflutren Lipid Microsphere 1.3 ML in 0.9 % Sodium Chloride 8.7 ML IVP PRN ×2 (14:07→19:38)
[2022-02-25 15:21] LABS: ANA IgG by ELISA NONE DETECTED (None Detected)
[2022-02-25] MEDS: Doxycycline 100 MG CAPSULE PO SCH (20:53)
[2022-02-25] MEDS ORDERED: D5% in Water 1,000 ML IVC PRN (21:02)
[2022-02-25] MEDS ORDERED: Dextrose 4 GM Chewable Tablets PO PRN ×2 (21:02)
[2022-02-25] MEDS ORDERED: *HR* Dextrose 50 % in Water (Syg) 50 ML SYRINGE IVP PRN (21:02)
[2022-02-26] MEDS: Piperacillin/Tazobactam 3.375 GM in 0.9 % Sodium Chloride Mini Bag 100 ML IVPB SCH ×3 (02:49→19:49)
[2022-02-26 05:02] LABS: Basophils % 0.2 %; Eosinophils # 0.4 K/mcL (0.0-0.6); Eosinophils % 4.3 %; Hematocrit 28.8 % (37.5-50.1); Hemoglobin 10.1 g/dL (12.9-16.9); Immature Granulocytes % 1.2 % (0-4); Lymphocytes # 1.5 K/mcL (0.6-4.6); Lymphocytes % 15.7 %; Mean Corpuscular HGB Conc 35.1 g/dL (31.6-35.5); Mean Corpuscular Hemoglobin 28.9 pg (28.0-33.3); Mean Corpuscular Volume 82.5 fL (83.0-100.0); Mean Platelet Volume 10.3 fL (9.4-12.4); Monocytes # 1.2 K/mcL (0.0-1.3); Monocytes % 13.3 %; Neutrophils # 6.1 K/mcL (1.6-8.9); Platelet Count 307 K/mcL (140-400); Red Blood Count 3.49 M/mcL (4.19-5.50); Red Cell Distribution Width 12.2 % (11.5-14.5); Segmented Neutrophils % 65.3 %; White Blood Count 9.3 K/mcL (4.3-11.1)
[2022-02-26 05:07] LABS: INR 1.1; Prothrombin Time 12.4 Seconds (9.4-12.1)
[2022-02-26 05:20] LABS: Alanine Aminotransferase 99 Units/L (7-52); Albumin 3.2 g/dL (3.5-5.7); Albumin/Globulin Ratio 1.4 (1.1-2.2); Alkaline Phosphatase 62 Units/L (34-104); Aspartate Amino Transferase 55 Units/L (13-39); BUN/Creatinine Ratio 10 (6-26); Bilirubin,Indirect 0.4 mg/dL (0.0-1.0); Bilirubin,Total 0.4 mg/dL (0.3-1.0); Blood Urea Nitrogen 13 mg/dL (6-20); Calcium 8.2 mg/dL (8.6-10.3); Carbon Dioxide 27 mEq/L (23-29); Chloride 104 mEq/L (98-107); Globulin 2.3 g/dL (2.4-3.5); Glucose 193 mg/dL (70-105); Osmolality,Calculated 291 (280-300); Potassium 3.2 mEq/L (3.5-5.1); Sodium 138 mEq/L (136-145); Total Protein 5.5 g/dL (6.4-8.9); eGFR For African Americans > 60 (> 60); eGFR For Non-African Americans > 60 (> 60)
[2022-02-26] MEDS: *HR* Heparin 5,000 UNIT/ML VIAL SQ SCH ×3 (05:37→20:49)
[2022-02-26] MEDS ORDERED: Dexmedetomidine HCl 400 MCG/100 ML MLS IVC ONE (09:49)
[2022-02-26] MEDS ORDERED: *HR* Midazolam HCl 2 MG/2 ML VIAL ONE (09:53)
[2022-02-26] MEDS ORDERED: *HR* FentaNYL (PF) 100 MCG/2 ML VIAL ONE (09:54)
[2022-02-26] MEDS ORDERED: Haloperidol Lactate 5 MG/ML VIAL ONE (10:13)
[2022-02-26] MEDS ORDERED: Lidocaine -MPF 2% 2 ML VIAL ONE (11:59)
[2022-02-26] MEDS ORDERED: Lidocaine -MPF 4% 5 ML AMPUL ONE (11:59)
[2022-02-26] MEDS ORDERED: *HR* Rocuronium Bromide 50 MG/5 ML VIAL ONE (11:59)
[2022-02-26] MEDS ORDERED: Ondansetron 4 MG/2 ML VIAL ONE (11:59)
[2022-02-26] MEDS: Potassium Chloride Elixir 20 MEQ/15 ML UDC PO ONE ×2 (12:29→12:40)
[2022-02-26] MEDS: Insulin LISPRO 300 UNITS/3 ML VIAL SUBQ SCH ×4 (12:29→20:50)
[2022-02-26] MEDS: Doxycycline 100 MG CAPSULE PO SCH ×2 (12:33→20:49)
[2022-02-26] MEDS: Lactobacillus 1 EACH CAP.SPRINK PO SCH ×2 (12:33→20:49)
[2022-02-26] MEDS: Nicotine 21 MG PATCH.TD24 TD SCH (12:40)
[2022-02-26 17:57] LABS: Appearance of Body Fluid Clear (Clear); Volume of Body Fluid 16 mL
[2022-02-26 18:11] LABS: Appearance of Body Fluid Clear (Clear); Volume of Body Fluid 18 mL
[2022-02-26] MEDS: Insulin DETEMIR 100 UNIT/ML X5UNITS SUBQ SCH (20:50)
[2022-02-27] MEDS: Piperacillin/Tazobactam 3.375 GM in 0.9 % Sodium Chloride Mini Bag 100 ML IVPB SCH ×3 (02:49→18:00)
[2022-02-27 03:01] LABS: Basophils % 0.3 %; Eosinophils # 0.2 K/mcL (0.0-0.6); Eosinophils % 2.1 %; Hematocrit 29.8 % (37.5-50.1); Hemoglobin 10.5 g/dL (12.9-16.9); Immature Granulocytes % 0.6 % (0-4); Lymphocytes # 1.7 K/mcL (0.6-4.6); Lymphocytes % 18.7 %; Mean Corpuscular HGB Conc 35.2 g/dL (31.6-35.5); Mean Corpuscular Hemoglobin 29.1 pg (28.0-33.3); Mean Corpuscular Volume 82.5 fL (83.0-100.0); Mean Platelet Volume 10.2 fL (9.4-12.4); Monocytes # 1.4 K/mcL (0.0-1.3); Monocytes % 15.7 %; Neutrophils # 5.7 K/mcL (1.6-8.9); Platelet Count 372 K/mcL (140-400); Red Blood Count 3.61 M/mcL (4.19-5.50); Red Cell Distribution Width 12.1 % (11.5-14.5); Segmented Neutrophils % 62.6 %
[2022-02-27 03:20] LABS: Alanine Aminotransferase 117 Units/L (7-52); Albumin 3.2 g/dL (3.5-5.7); Albumin/Globulin Ratio 1.2 (1.1-2.2); Alkaline Phosphatase 75 Units/L (34-104); Aspartate Amino Transferase 62 Units/L (13-39); BUN/Creatinine Ratio 15 (6-26); Bilirubin,Indirect 0.4 mg/dL (0.0-1.0); Bilirubin,Total 0.4 mg/dL (0.3-1.0); Blood Urea Nitrogen 20 mg/dL (6-20); Calcium 8.5 mg/dL (8.6-10.3); Carbon Dioxide 24 mEq/L (23-29); Chloride 102 mEq/L (98-107); Globulin 2.7 g/dL (2.4-3.5); Glucose 434 mg/dL (70-105); Osmolality,Calculated 303 (280-300); Potassium 3.6 mEq/L (3.5-5.1); Sodium 136 mEq/L (136-145); Total Protein 5.9 g/dL (6.4-8.9); eGFR For African Americans > 60 (> 60); eGFR For Non-African Americans > 60 (> 60)
[2022-02-27] MEDS: *HR* Heparin 5,000 UNIT/ML VIAL SQ SCH ×3 (06:22→21:08)
[2022-02-27] MEDS: Insulin LISPRO 300 UNITS/3 ML VIAL SUBQ SCH ×4 (08:02→21:09)
[2022-02-27] MEDS: Lactobacillus 1 EACH CAP.SPRINK PO SCH ×2 (08:03→21:08)
[2022-02-27] MEDS: Doxycycline 100 MG CAPSULE PO SCH ×2 (08:03→21:08)
[2022-02-27] MEDS: Nicotine 21 MG PATCH.TD24 TD SCH (09:43)
[2022-02-27 12:36] LABS: Angiotensin Converting Enzyme 42 U/L (16-85)
[2022-02-27 19:55] LABS: Alpha 2 Globulin (PEP) 0.97 g/dL (0.48-1.05)
[2022-02-27 20:16] LABS: ANCA IFA Titer <1:20 (<1:20)
[2022-02-27] MEDS: Melatonin 3 MG TABLET PO PRN (21:08)
[2022-02-27] MEDS: *HR* HYDROcodone/Acet 5/325 mg TABLET PO PRN (21:08)
[2022-02-27] MEDS: Insulin DETEMIR 100 UNIT/ML X5UNITS SUBQ SCH (21:09)
[2022-02-28] MEDS: Piperacillin/Tazobactam 3.375 GM in 0.9 % Sodium Chloride Mini Bag 100 ML IVPB SCH ×2 (02:51→11:29)
[2022-02-28 02:52] LABS: Basophils % 0.5 %; Eosinophils # 0.4 K/mcL (0.0-0.6); Eosinophils % 5.2 %; Hematocrit 29.3 % (37.5-50.1); Hemoglobin 10.1 g/dL (12.9-16.9); Immature Granulocytes % 0.6 % (0-4); Lymphocytes # 2.3 K/mcL (0.6-4.6); Lymphocytes % 28.4 %; Mean Corpuscular HGB Conc 34.5 g/dL (31.6-35.5); Mean Corpuscular Hemoglobin 28.9 pg (28.0-33.3); Mean Corpuscular Volume 83.7 fL (83.0-100.0); Mean Platelet Volume 9.7 fL (9.4-12.4); Monocytes # 1.1 K/mcL (0.0-1.3); Monocytes % 13.3 %; Neutrophils # 4.1 K/mcL (1.6-8.9); Platelet Count 389 K/mcL (140-400); Red Cell Distribution Width 12.2 % (11.5-14.5)
[2022-02-28 03:01] LABS: BUN/Creatinine Ratio 12 (6-26); Blood Urea Nitrogen 14 mg/dL (6-20); Calcium 8.6 mg/dL (8.6-10.3); Carbon Dioxide 29 mEq/L (23-29); Chloride 106 mEq/L (98-107); Glucose 148 mg/dL (70-105); Osmolality,Calculated 295 (280-300); Potassium 3.2 mEq/L (3.5-5.1); Sodium 141 mEq/L (136-145); eGFR For African Americans > 60 (> 60); eGFR For Non-African Americans > 60 (> 60)
[2022-02-28 03:25] LABS: A.galactomannan Ag Index 0.15
[2022-02-28] MEDS: *HR* Heparin 5,000 UNIT/ML VIAL SQ SCH ×3 (06:25→21:33)
[2022-02-28] MEDS: Nicotine 21 MG PATCH.TD24 TD SCH (07:19)
[2022-02-28] MEDS: Insulin LISPRO 300 UNITS/3 ML VIAL SUBQ SCH ×4 (07:35→21:33)
[2022-02-28] MEDS: Doxycycline 100 MG CAPSULE PO SCH (08:28)
[2022-02-28] MEDS: Lactobacillus 1 EACH CAP.SPRINK PO SCH ×2 (08:28→21:32)
[2022-02-28 09:31] LABS: IFE Reflexed IFE Done; Immunoglobulin A 44 mg/dL (68-408); Immunoglobulin G 617 mg/dL (768-1632); Immunoglobulin M 26 mg/dL (35-263)
[2022-02-28 09:35] LABS: ANCA IFA Pattern NONE DETECTED (None Detected); Serine Protease-3 Antibody 0 AU/mL (0-19)
[2022-02-28] MEDS ORDERED: lisinopriL 10 MG TABLET PO ONE (16:03)
[2022-02-28] MEDS: Insulin DETEMIR 100 UNIT/ML X5UNITS SUBQ SCH (21:34)
[2022-03-01] MEDS ORDERED: Insulin LISPRO 300 UNITS/3 ML VIAL SUBQ ONE (00:51)
[2022-03-01 04:01] VITALS: PULSE 80
[2022-03-01] MEDS: *HR* Heparin 5,000 UNIT/ML VIAL SQ SCH (06:19)
[2022-03-01 06:42] LABS: Bilirubin,Urine Negative (Negative); Blood,Urine Negative (Negative); Clarity,Urine Clear (Clear); Color,Urine Colorless (Yellow); Glucose,Urine (UA) Normal (Normal); Ketones,Urine Negative (Negative); Leukocyte Esterase,Urine Negative (Negative); Nitrite,Urine Negative (Negative); Protein,Urine 70 mg/dL (Neg-Trace); RBC,Urine 0-3 per hpf (0-3); Specific Gravity,Urine 1.009 (1.010-1.025); Urobilinogen,Urine Normal (Normal); WBC,Urine 0-3 per hpf (0-3)
[2022-03-01 06:51] VITALS: BP 151/90; TEMP 98.4; O2SAT 99
[2022-03-01] MEDS: Insulin LISPRO 300 UNITS/3 ML VIAL SUBQ SCH ×2 (07:18→13:23)
[2022-03-01 07:45] LABS: Protein/Creatinine Ratio,Urine 1.6 mg/mg (0.00-0.20)
[2022-03-01] MEDS: Lactobacillus 1 EACH CAP.SPRINK PO SCH (08:05)
[2022-03-01] MEDS: Nicotine 21 MG PATCH.TD24 TD SCH (08:05)
[2022-03-01] MEDS: Acetaminophen 325 MG TABLET PO PRN (09:30)
[2022-03-01 10:36] LABS: Kappa Qnt Free Light Chains 8.8 mg/L (3.30-19.40)
[2022-03-01] MEDS ORDERED: Doxycycline 100 MG CAPSULE PO SCH (12:15)
[2022-03-02 04:23] LABS: Alpha 2 Globulin (PEP) 1.18 g/dL (0.48-1.05); Beta Globulin (PEP) 0.52 g/dL (0.48-1.10)
[2022-03-02 10:52] LABS: IFE Reflexed IFE Done; Immunoglobulin G 568 mg/dL (768-1632); Immunoglobulin M 24 mg/dL (35-263)
[2022-03-02 10:53] LABS: Immunoglobulin A 42 mg/dL (68-408)
== END 2022-03-01 13:34 | disposition home or self-care (01) | DRG 871 ==
LOC: EMEROOARM 20:19 → 3BNU 20:19 → SUATTDRO 02-21 00:29 → 3BNU 02-21 01:17 → 3ANU 02-21 18:56 → SUATTDRO 02-22 11:16
PROVIDERS: ADMIT Internal Medicine; ATTEND Student in an Organized Health Care Education/Training Program
PROC: ENDOLBX (2022-02-26 19:40)